=== PATIENT | female | born 1960 | race Caucasian/White ===

== ENCOUNTER 2016-09-24 12:30 | Outpatient (RCR) | payer OTHER ==
[~2016-09-24 12:30] MED LIST: CEFTIN500 MG PO; DULCOLAX S10 MG/SUPP RC; LAMISIL1% TP; MIRALAX PA17 GM/Dose PO; NEOSPORIN1 OIN TP; PREDNISONE10 MG PO; PREDNISONE20 MG PO; PREPH RC; PROVENTIL0.09 MG/A1 IH; Patient's Own Medica MM; Patient's Own Medica NS; REMERON 15M15 MG/TA1 PO; ROXICODONE 55 MG/TAB PO; TOPROL XL 50MG50 MG PO; TYLENOL 325MG325 MG PO; ZITHROMAX 250M250 MG PO; ZOLOFT 50MG50 MG PO
== END 2016-12-03 14:00 | disposition home or self-care (01) ==
LOC: MKS.ESL.PT 12:30
DX: M21.372 Foot drop, left foot (principal)

== ENCOUNTER 2017-02-26 12:30 | Outpatient (RCR) | payer BC | END 2017-03-10 11:11 | disposition still patient (30) | LOC: WSPT 12:30 | DX: M21.372 Foot drop, left foot (principal) ==

== ENCOUNTER → 2017-06-09 | Outpatient (CLI) | payer BC | LOC: MHCPAIN 12:58 | DX: G89.29 Other chronic pain (principal); M79.605 Pain in left leg; M79.2 Neuralgia and neuritis, unspecified | CPT/HCPCS: G0463 ==

== ENCOUNTER 2017-07-06 14:45 | Outpatient (RCR) | payer BC | END 2017-07-07 09:07 | LOC: WSPT 14:45 | DX: M67.02 Short Achilles tendon (acquired), left ankle (principal) ==

== ENCOUNTER → 2017-07-24 | Outpatient (CLI) | payer BC | LOC: MHCPAIN 12:43 | DX: G89.29 Other chronic pain (principal); M79.2 Neuralgia and neuritis, unspecified; M79.1 Myalgia | CPT/HCPCS: G0463 ==

== ENCOUNTER 2017-08-10 13:15 | Outpatient (RCR) | payer BC | END 2017-08-11 09:18 | disposition home or self-care (01) | LOC: WSST 13:15 | DX: R49.0 Dysphonia (principal); R13.10 Dysphagia, unspecified; R48.9 Unspecified symbolic dysfunctions ==

== ENCOUNTER 2017-08-13 22:16 | Emergency (ER) | payer BC ==
[~2017-08-13] VITALS: Ht 160 cm; Wt 86.4 kg
[~2017-08-13 22:16] MED LIST changes: -COLACE 100100 MG/CAP PO; -DESYREL 50MG50 MG PO; -FISH OIL 500 M1 EAC1 PO; -TOPROL XL100 MG PO; -ULTRAM 50MG TAB50 MG PO
[2017-08-13 23:22] LABS: BASO % 0.2 % (0.0-2.0); EOS % 0.2 % (0-4.0); GRAN # 7.5 (1.4-6.5); GRAN % 88.4 % (42.2-75.2); HEMATOCRIT 40.8 % (37.0-47.0); HEMOGLOBIN 13.4 g/dl (12.5-16.0); LYMPH # 0.5 (1.2-3.4); LYMPH % 6.4 % (20.0-51.0); MEAN CELL VOLUME 83 fl (80.0-100.0); MEAN CORPUSCULAR HEMOGLOBIN 27 pg (27.0-31.0); MEAN CORPUSCULAR HGB CONC 33 g/dl (33.0-37.0); MEAN PLATELET VOLUME 9.7 fl (7.4-10.4); MONO # 0.4 (0.1-0.6); MONO % 4.4 % (1.7-9.3); PLATELET COUNT 268 K/mm3 (130-400); RED BLOOD COUNT 4.92 M/mm3 (4.10-5.30); WHITE BLOOD COUNT 8.5 K/mm3 (4.8-10.8)
[2017-08-13 23:28] LABS: COLLECTION METHOD CLEAN CATCH
[2017-08-13 23:34] LABS: PH 5 (5-8); URINE APPEARANCE Clear; URINE BACTERIA Rare /hpf; URINE BILIRUBIN Negative (NEGATIVE); URINE BLOOD 2+ (NEGATIVE); URINE COLOR Yellow; URINE GLUCOSE Negative (NEGATIVE); URINE KETONE Negative (NEGATIVE); URINE LEUKOCYTE ESTERASE Negative (NEGATIVE); URINE PROTEIN(semi-quant) Negative (NEGATIVE); URINE RBC 0-2 /hpf; URINE UROBILINOGEN Negative (NEGATIVE); URINE WBC 0-2 /hpf
[2017-08-13 23:35] LABS: ADJUSTED CALCIUM 8.9 mg/dL (8.4-10.2); ALBUMIN 4.7 gm/dL (3.5-5.0); BILIRUBIN,TOTAL 0.6 mg/dL (0.0-1.0); C-REACTIVE PROTEIN 1.4 mg/dL (0.0-0.9); CALCIUM 9.5 mg/dL (8.4-10.2); CREATININE, serum 1.36 mg/dL (0.52-1.25); POTASSIUM 3.8 mmol/L (3.4-5.0); TOTAL PROTEIN 7.1 gm/dL (6.4-8.2)
[2017-08-13 23:40] LABS: STREP SCREEN NEGATIVE
[2017-08-13 23:43] LABS: INFLUENZA A NEGATIVE; INFLUENZA B NEGATIVE
[2017-08-14 00:32] VITALS: TEMP 98.3
[2017-08-14] MEDS ORDERED: TOPROL XL100 MG PO (02:00)
[2017-08-14] MEDS ORDERED: ULTRAM 50MG TAB50 MG PO (02:01)
[2017-08-14] MEDS ORDERED: ZOLOFT 50MG50 MG PO (02:01)
[2017-08-14] MEDS ORDERED: DESYREL 50MG50 MG PO (02:02)
[2017-08-14] MEDS ORDERED: COLACE 100100 MG/CAP PO (02:02)
[2017-08-14] MEDS ORDERED: FISH OIL 500 M1 EAC1 PO (02:04)
[2017-08-14 03:07] VITALS: BP 110/61; PULSE 77
== END 2017-08-14 03:09 | disposition home or self-care (01) ==
LOC: COL.ER 22:16
PROVIDERS: Emergency Medicine
DX: R50.9 Fever, unspecified (principal); G89.29 Other chronic pain; I51.4 Myocarditis, unspecified; N18.9 Chronic kidney disease, unspecified; Z98.890 Other specified postprocedural states
CPT/HCPCS: J1170; J7030

== ENCOUNTER → 2017-08-13 | Outpatient (CLI) | payer BC ==
[~2017-08-13] MED LIST changes: +COLACE 100100 MG/CAP PO; +DESYREL 50MG50 MG PO; +FISH OIL 500 M1 EAC1 PO; +TOPROL XL100 MG PO; +ULTRAM 50MG TAB50 MG PO
== END ==
LOC: MHCPAIN 10:01
DX: G90.522 Complex regional pain syndrome I of left lower limb (principal); G62.9 Polyneuropathy, unspecified
CPT/HCPCS: J1100; J2250; J3010; Q9967

== ENCOUNTER → 2017-08-31 | Outpatient (CLI) | payer BC ==
[~2017-08-31] MED LIST changes: +COLACE 100100 MG/CAP PO; +DESYREL 50MG50 MG PO; +FISH OIL 500 M1 EAC1 PO; +TOPROL XL100 MG PO; +ULTRAM 50MG TAB50 MG PO
== END ==
LOC: MHCPAIN 14:39
DX: G89.29 Other chronic pain (principal); M79.2 Neuralgia and neuritis, unspecified; M79.1 Myalgia
CPT/HCPCS: G0463

== ENCOUNTER → 2017-10-05 | Outpatient (CLI) | payer BC | LOC: MHCPAIN 14:00 | DX: G89.29 Other chronic pain (principal); M79.2 Neuralgia and neuritis, unspecified; M79.1 Myalgia | CPT/HCPCS: G0463 ==

== ENCOUNTER → 2017-11-09 | Outpatient (CLI) | payer BC | LOC: MHCPAIN 13:27 | DX: G89.29 Other chronic pain (principal); M79.2 Neuralgia and neuritis, unspecified; M79.1 Myalgia | CPT/HCPCS: G0463 ==

== ENCOUNTER → 2018-02-08 | Outpatient (CLI) | payer BC | LOC: MHCPAIN 13:29 | DX: G89.29 Other chronic pain (principal); M79.662 Pain in left lower leg; M79.2 Neuralgia and neuritis, unspecified | CPT/HCPCS: G0463 ==

== ENCOUNTER → 2018-05-11 | Outpatient (CLI) | payer BC | LOC: MHCPAIN 13:25 | DX: G89.29 Other chronic pain (principal); M79.2 Neuralgia and neuritis, unspecified; M79.1 Myalgia | CPT/HCPCS: G0463 ==

== ENCOUNTER → 2018-08-10 | Outpatient (CLI) | payer BC | LOC: COL.VAS 15:08 | DX: I51.4 Myocarditis, unspecified (principal); I51.7 Cardiomegaly; I34.0 Nonrheumatic mitral (valve) insufficiency; I35.1 Nonrheumatic aortic (valve) insufficiency ==

== ENCOUNTER 2019-03-25 14:00 | Outpatient (RCR) | payer BC | END 2019-04-04 | disposition home or self-care (01) | LOC: WSPT | DX: G90.522 Complex regional pain syndrome I of left lower limb (principal); M79.2 Neuralgia and neuritis, unspecified; R20.8 Other disturbances of skin sensation; M79.605 Pain in left leg ==

== ENCOUNTER 2020-10-03 14:52 | Outpatient (CLI) | payer OTHER ==
[~2020-10-03] VITALS: Ht 160 cm; Wt 90.9 kg
[2020-10-03] VITALS (10 sets, daily range): BP systolic 109–127; BP diastolic 43–62; PULSE 65–70; TEMP 98.3–99
[2020-10-03] MEDS ORDERED: PRILOSEC 20MG20 MG PO (15:19)
[2020-10-03] MEDS ORDERED: SINGULAIR 110 MG/TAB PO (15:19)
[2020-10-03] MEDS ORDERED: ZANAFLEX2 MG PO (15:20)
[2020-10-03] MEDS ORDERED: PRINIVIL2.5 MG PO (15:21)
[2020-10-03] MEDS ORDERED: XANAX .25M0.25 MG/TA PO (15:21)
[2020-10-03] MEDS ORDERED: VOLTAREN GEL 1%1 TU TP (15:23)
--- NOTE | 2020-10-03 17:26 | NUR ---
Pt tolerated infusion well, vitals remained stable throughout infusion, and pt denied any symptoms of adverse or allergic reaction. pt was escorted to exit via wheelchair.
== END 2020-10-03 17:10 | disposition home or self-care (01) ==
LOC: EUO 14:52
DX: U07.1 COVID-19 (principal)
CPT/HCPCS: J7050

== ENCOUNTER → 2020-10-25 | Outpatient (CLI) | payer OTHER ==
[~2020-10-25] MED LIST changes: +PRILOSEC 20MG20 MG PO; +PRINIVIL2.5 MG PO; +SINGULAIR 110 MG/TAB PO; +VOLTAREN GEL 1%1 TU TP; +XANAX .25M0.25 MG/TA PO; +ZANAFLEX2 MG PO
== END ==
LOC: COL.VAS 11:54
DX: I08.0 Rheumatic disorders of both mitral and aortic valves (principal)

== ENCOUNTER → 2020-12-20 | Outpatient (CLI) | payer OTHER | LOC: COL.PUL 13:00 | DX: R06.02 Shortness of breath (principal) ==

== ENCOUNTER → 2021-04-22 | Outpatient (CLI) | payer OTHER | LOC: MC.RAD 14:23 | DX: Z12.31 Encounter for screening mammogram for malignant neoplasm of breast (principal) ==

== ENCOUNTER → 2022-06-05 | Outpatient (CLI) | payer OTHER ==
[~2022-06-05] MED LIST changes: +AMOXICILLIN 8751 TAB PO; +BENADRYL25 M2 PO; +MELATONIN5 M1 PO; +MOTRIN 600600 MG/TAB PO; +NORCO 325 MG-51 TAB PO; +TYLENOL 500MG500 MG PO; +VESICARE 5MG5 MG PO
[2022-06-05 17:00] LABS: BASO % 0.4 % (0.0-2.0); EOS # 0.3 K/mm3 (0.0-0.7); EOS % 4.4 % (0.0-4.0); GRAN # 4.8 K/mm3 (1.4-6.5); GRAN % 66.9 % (42.2-75.2); HEMATOCRIT 39.3 % (37.0-47.0); LYMPH # 1.6 K/mm3 (1.2-3.4); MEAN CELL VOLUME 87 fl (80.0-100.0); MEAN CORPUSCULAR HEMOGLOBIN 29 pg (27-31); MEAN CORPUSCULAR HGB CONC 33 g/dl (33.0-37.0); MEAN PLATELET VOLUME 9.5 fl (7.4-10.4); MONO # 0.4 K/mm3 (0.1-0.6); PLATELET COUNT 303 K/mm3 (130-400); RED BLOOD COUNT 4.54 M/mm3 (4.10-5.30); REDCELL DISTRIBUTION WIDTH-CV 13.6 % (11.5-14.5)
[2022-06-05 17:10] LABS: ALBUMIN 4.3 gm/dL (3.4-4.8); BILIRUBIN,TOTAL 0.3 mg/dL (0.2-1.2); CALCIUM 9.7 mg/dL (8.4-10.2); CREATININE, serum 1.18 mg/dL (0.57-1.11)
== END ==
LOC: COL.LAB 16:26
PROVIDERS: Family Medicine
DX: R10.11 Right upper quadrant pain (principal)

== ENCOUNTER 2022-06-06 11:56 | Day surgery (SDC) | payer OTHER ==
[2022-06-06] VITALS (10 sets, daily range): BP systolic 108–140; BP diastolic 35–72; PULSE 62–94; TEMP 97.9–98.5
[~2022-06-06] VITALS: Ht 160 cm; Wt 89.0 kg
[~2022-06-06 11:56] MED LIST changes: -AMOXICILLIN 8751 TAB PO; -BENADRYL25 M2 PO; -MELATONIN5 M1 PO; -MOTRIN 600600 MG/TAB PO; -NORCO 325 MG-51 TAB PO; -TYLENOL 500MG500 MG PO; -VESICARE 5MG5 MG PO
[2022-06-06] MEDS ORDERED: PRILOSEC 20MG20 MG PO (14:39)
[2022-06-06] MEDS ORDERED: TOPROL XL100 MG PO (14:40)
[2022-06-06] MEDS ORDERED: ULTRAM 50MG TAB50 MG PO (14:41)
[2022-06-06] MEDS ORDERED: ZANAFLEX2 MG PO (14:41)
[2022-06-06] MEDS ORDERED: XANAX .25M0.25 MG/TA PO (14:42)
[2022-06-06] MEDS ORDERED: SINGULAIR 110 MG/TAB PO (14:42)
[2022-06-06] MEDS ORDERED: ZOLOFT 50MG50 MG PO (14:43)
[2022-06-06] MEDS ORDERED: VESICARE 5MG5 MG PO (14:43)
[2022-06-06] MEDS ORDERED: PRINIVIL2.5 MG PO (14:44)
[2022-06-06] MEDS ORDERED: BENADRYL25 M2 PO (14:45)
[2022-06-06] MEDS ORDERED: TYLENOL 500MG500 MG PO (14:45)
[2022-06-06] MEDS ORDERED: VOLTAREN GEL 1%1 TU TP (14:46)
[2022-06-06] MEDS ORDERED: MELATONIN5 M1 PO (14:46)
[2022-06-06] MEDS ORDERED: NORCO 325 MG-51 TAB PO ×2 (17:00)
[2022-06-06] MEDS ORDERED: MOTRIN 600600 MG/TAB PO (17:00)
[2022-06-06] MEDS ORDERED: AMOXICILLIN 8751 TAB PO (17:01)
--- NOTE | 2022-06-06 19:33 | NUR ---
Patient resting in bed post op. Wanting to sleep. Her spouse at bedside. Up to the bathroom and voided. Vss on O2. IVF per orders. Scds BLe. Robotic lap site x5. edge well approximated. One tab norco for abdominal pain after being up, she did take with crakers to prevent further nausea, she reports taking pain medication in the past. She reports not being able to take motrin due to CKD. Bedside report to ritesh.
--- NOTE | 2022-06-06 20:27 | NUR ---
PT A&OX4 RESTING IN BED. ASSESSMENT COMPLETE. PT RATES PN A 5/10 IN ABDOMEN. PT REPORTS DECREASED NAUSEA. O2 NC AT 2L. SCDS TO BLE. FLUIDS RUNNING IN LT WRIST. ABD INCISIONS CDI. NO NEEDS AT THIS TIME. CALL LIGHT WITHIN REACH.
[2022-06-07 03:55] VITALS: BP 113/43; PULSE 79; TEMP 98.5
[2022-06-07 06:38] LABS: GRAN # 7.1 K/mm3 (1.4-6.5); HEMOGLOBIN 11.9 g/dl (12.5-16.0); LYMPH # 0.7 K/mm3 (1.2-3.4); MEAN CELL VOLUME 84 fl (80.0-100.0); MEAN CORPUSCULAR HEMOGLOBIN 27 pg (27-31); MEAN CORPUSCULAR HGB CONC 33 g/dl (33.0-37.0); MONO # 0.4 K/mm3 (0.1-0.6); MONO % 4.6 % (1.7-9.3); PLATELET COUNT 285 K/mm3 (130-400); RED BLOOD COUNT 4.34 M/mm3 (4.10-5.30); REDCELL DISTRIBUTION WIDTH-CV 13.4 % (11.5-14.5)
[2022-06-07 07:01] LABS: ALBUMIN 3.8 gm/dL (3.4-4.8); BILIRUBIN,TOTAL 0.4 mg/dL (0.2-1.2); CALCIUM 9.4 mg/dL (8.4-10.2); CREATININE, serum 1.16 mg/dL (0.57-1.11); POTASSIUM 4.1 mmol/L (3.5-4.5); TOTAL PROTEIN 6.2 gm/dL (6.2-8.1)
[2022-06-07 07:04] LABS: HEMATOCRIT 36.4 % (37.0-47.0)
--- NOTE | 2022-06-07 07:22 | NUR ---
Received shift report from the night nurse.
[2022-06-07 08:00] VITALS: BP 127/46; PULSE 80; TEMP 98
--- NOTE | 2022-06-07 08:49 | NUR ---
Patient alert and oriented x4 . Bowel sound active. Incision x5 in abdomen dry and intact. IVF infusing on left hand with no difficulty. No redness noted at IV site. Patient denies pain and episode of n/v. Patient states she has being passing gas. Will continue to monitor patient.
--- NOTE | 2022-06-07 09:02 | NUR ---
Patient IVF completed. Cap placed on INT.
--- NOTE | 2022-06-07 10:11 | NUR ---
SW met with patient to complete intake. Patient states that she lives in [facility] with her Diogenes [phone]. Patient states that she saulo not utilize any DME at this time and doesn't not use HH servies. PCP is Dr. Pope, and pharmacy is [facility]. Patient states that she does not have DPOA/HC at this time and does not wish to appoint anyone at this time. Patient states that she plans to DC today and had no questions or concerns at this time. SW will continue to follow. DC plan: home
--- NOTE | 2022-06-07 10:17 | NUR ---
Patient requested for medication for abdominal pain. Patient rated pain level 8/10, describes pain as sharp, and stabbing. Patient denies of feeling nauseous. [place] administered . Patient tolerated medication well. Will reassess patient for pain level.
--- NOTE | 2022-06-07 11:15 | NUR ---
Assess patient's pain level at the abdomen. Patient rated painl level 5/10. Offered to assist patient with ambulation in the hallway to ease the pain, patient declined at this time. Will continue to monitor. Call [facility] within reach.
[2022-06-07 12:00] VITALS: BP 123/42; PULSE 76; TEMP 98.3
--- NOTE | 2022-06-07 13:17 | NUR ---
[employer] rounds: [employer] visit attempted. Patient declined stating pain was too severe for a visit. [employer] visit not completed.
[2022-06-07] MEDS ORDERED: NORCO 325 MG-51 TAB PO (14:13)
--- NOTE | 2022-06-07 15:03 | NUR ---
Patient discharged home. Discharge instruction given , daughter at the bedside. INT discontinued, assisted patient in a wheel chair to the ER entrance. Patient daughter escorted her home.
== END 2022-06-07 14:30 | disposition home or self-care (01) ==
LOC: SDCO 11:56 → SURG 18:34 → SDCO 06-07 14:30
PROVIDERS: Surgery
DX: D47.4 Osteomyelofibrosis (principal); K21.9 Gastro-esophageal reflux disease without esophagitis; Z87.891 Personal history of nicotine dependence
CPT/HCPCS: OP; J0330; J0690; J1100; J1170; J1885; J2405; J2704; J2765; J3010; J7050; J7120; Q9966